=== PATIENT | female | born 1925 | race Caucasian/White ===

== ENCOUNTER 2017-04-16 06:12 | Inpatient (IN) | payer MEDICARE ==
--- NOTE | 2017-04-03 14:25 | HP ---
HISTORY AND PHYSICAL: DATE OF ADMISSION/SURGERY: 04/16/17 DATE OF OFFICE VISIT: 04/03/17 SURGEON: Darshana Nava MD * (DICTATED BY RASHIDA GODINEZ) PROCEDURE: Left total knee arthroplasty. CHIEF COMPLAINT: Left knee pain. HISTORY OF PRESENT ILLNESS: Ms. Bates is an 89-year-old female who has end- stage osteoarthritis of the left knee. She has failed conservative management and elected to proceed with a left total knee arthroplasty, which is scheduled for 04/16/[address] Nava. PAST MEDICAL HISTORY: AFib, hypertension, breast cancer, hyperlipidemia, Zenker 's diverticulum. PAST SURGICAL HISTORY: Tonsillectomy, lumpectomies, bilateral mastectomies, lymph node removal, cataract removal, endoscopy and D and C. CURRENT MEDICATIONS: 1. Eliquis 5 mg daily. 2. Tylenol as needed. 3. Atorvastatin calcium 10 mg daily. 4. Multivitamin. 5. Metoprolol 25 mg twice a day. 6. Antacid daily. 7. Valsartan 320 mg daily. 8. Fibercon. ALLERGIES: To CODEINE causing vomiting. FAMILY HISTORY: Heart disease and cancer. SOCIAL HISTORY: She is an 89-year-old female. She lives with her . She does not smoke or use drugs. Uses alcohol rarely. REVIEW OF SYSTEMS: A complete 14-point review of systems was reviewed with the patient. It was positive for palpitations. She denies history of DVT, PE, hepatitis C, HIV, or MRSA. PHYSICAL EXAMINATION GENERAL: She is well developed, well nourished, in no acute distress. VITAL SIGNS: She stands 5 feet 2 inches tall, weighs 140 pounds. Her blood pressure is 140/80, her heart rate is 84. HEENT: Normocephalic, atraumatic. NECK: Supple. No palpable lymph nodes. PULMONARY: Lungs are clear to auscultation bilaterally. CARDIO: Regular rate and rhythm. Strong S1, S2. ABDOMEN: Soft, nontender, nondistended. MUSCULOSKELETAL: Left lower extremity, the skin is intact. There are no open wounds or abrasions. She has some tenderness over the medial and lateral joint lines. There is some mild joint effusion. No varus or valgus instability. 10 to 120 degrees of flexion. 2+ dorsalis pedis pulses. Her lower extremity muscle group strengths are intact at 5/5. ASSESSMENT AND PLAN: Ms. Bates is an 89-year-old female with end-stage osteoarthritis of the left knee. She has failed conservative management and elected to proceed with a left total knee arthroplasty which is scheduled for with Dr. Nava. Dr. Nava discussed the risks and benefits of the surgery at today's visit and all of her questions were answered. Percocet and Colace were sent to her pharmacy for postoperative pain control. She was instructed to stop Eliquis 7 days before the surgery and we will restart this at the time of discharge for DVT prophylaxis. She follow up with Dr. Nava 2 weeks after the surgery. RASHIDA GODINEZ [id number]/CPS #: [id number] MTDD
[~2017-04-16 06:12] MED LIST: Acetaminophen TAB* 325 MG PO ONE; Buffered Lidocaine 0.9% SYRIN* 5 ML/SYR SYRINGE INTRADERM ONE; Dexamethasone IV* 4 MG/ML 1 ML (4 MG) IV SLOW PU ONE; Famotidine IV* 10 MG/ML 2 ML (20 mg) IV ONE
--- OUTSIDE RECORDS SUMMARY | 2017-04-16 06:19 | XMS REPORT ---
:1925 External Reference #:[id number] Author Organization [employer] Address [address] [address] Phone [phone] Care Team Providers Name Role Phone Juan Goff MD Primary Care Physician Unavailable Payers Type Date Identification Numbers Payment Provider Subscriber Health Maintenance Effective: Policy Number: Medicare Blue September [facility] [place] (O) 04/29/2013 [id number] o Group Number: [id number] [address] [address] PayID: [id number] GABRIELA Wilkinson [address] Commercial Policy Number: [id number] [facility] PayID: [id number] [place] [address] Problems Date Description Provider Status Onset: 01/17/2015 Localized, primary osteoarthritis Darshana Nava M.D. Active Onset: 09/14/2016 Localized, primary osteoarthritis of the Darshana Nava M.D. Active pelvic region and thigh Onset: 09/14/2016 Trochanteric bursitis Darshana Nava M.D. Active Family History Date Family Member(s) Problem(s) Comments General Heart Disease General Cancer General Rheumatoid Arthritis Social History Type Date Description Comments Lives With Occupation Retired Edmundo issues with memory and she primarily takes care of him and does the driving. They have been a [place] for 20+ years. They had been in [place] before that but they moved to this region because they were familiar because he went to college at [employer]. They have 3 children and 7 granddaughters. ETOH Use Denies alcohol use Smoking Patient has never smoked Recreational Drug Use Denies Drug Use Daily Caffeine Consumes on average 2 cups of hot tea per day Exercise Type/Frequency Exercises sporadically Allergies, Adverse Reactions, Alerts Date Description Reaction Status Severity Comments 06/07/2014 Codeine active 09/14/2016 Tylenol With Codeine active 06/07/2014 Tylenol inactive ok alone, had trouble tylenol with codeine only Medications Medication Date Status Form Strength Qnty SIG Indications Ordering Provider Oxycodone-Aceta 04/03/ Active Tablets 5-325mg 90tabs 1-2 tabs by Darshana minophen 2017 mouth every Elijah, 4-6 hours M.D. as needed for pain Stool Softener 04/03/ Active Capsules 100mg 90caps 1 by mouth Darshana 2017 2-3 times Elijah, daily while M.D. on narcotic pain medication Eliquis 01/29/ Active Tablets 5mg 180tab 1 by mouth I48.0 Emir S. 2017 s twice a day Slick, DO FACC Atorvastatin / Active 10mg 1 tab daily Unknown Calcium 0000 hs Multivitamin / Active 1 daily Unknown 0000 Metoprolol / Active Tablets ER 25mg 180tab 1 by mouth Emir S. Succinate ER 0000 24HR s twice daily Kruger, DO FACC Calcium / Active Chewtabs 500mg 2 tab Unknown Carbonate 0000 chewable Antacid twice a day Valsartan / Active Tablets 320mg 1 by mouth Unknown 0000 every day Fibercon / Active Unknown 0000 Acetaminophen 01/22/ Hx Tablets 500mg 120tab 2 tabs 2 Jessica Extra Strength 2017 - s times daily [place], 06/04/ as needed M.D. 2016 for pain Tamiflu 06/07/ Hx Capsules 75mg 10caps 1 cap by Mariah 2014 - mouth twice Juwan, 09/13/ a day x 5 N.P. 2017 days Clobetasol 10/12/ Hx Cream 0.05% 60gm apply thin Stephanie Propionate E 2014 - layer over [place], 2017 area before N.P. bed Valsartan / Hx 160mg Unknown - 2016 Aspirin Ec / Hx 81 mg daily Unknown Lo-Dose - 2016 Meloxicam / Hx 7.5mg Unknown - 2016 Medications Administered in Office Medication Date Status Form Strength Qnty SIG Indications Ordering Provider Inj, 02/27/ Administered Injection Emir Francois Regadenoson, 0.1 2016 Slick DO MG FACC Aminophylline 02/27/ Administered Injection Emir SJake 2016 DO Slick FACC Technetium TC 02/27/ Administered Injection Emir Francois 99M Tetrofosmin, 2016 Slick, Per Unit Dose Up FACC To 40 Millicuries Depomedrol 40MG 09/14/ Administered Injection Darshana 2016 Elijah, M.D. Synvisc Or 02/16/ Administered Injection Darshana Synvisc-One 2014 Elijah, Injection 1 MG M.D. Synvisc Or 02/09/ Administered Injection Darshana Synvisc-One 2014 Elijah, Injection 1 MG M.D. Synvisc Or 02/02/ Administered Injection Darshana Synvisc-One 2014 Elijah, Injection 1 MG M.D. Immunizations CPT Code Status Date Vaccine Lot # [id number] Given 02/09/2010 Influenza Virus 3Yrs & Over [id number] Given 05/03/2009 Influenza Virus Vaccine, Pandemic Formulation 69491 Given 05/03/2009 Administration Swine Flu Shot Vital Signs Date Vital Result Comment 04/03/2017 Height 61 inches 5'1" Weight 142.00 lb Heart Rate 84 /min BP Systolic 140 mmHg BP Diastolic 80 mmHg Respiratory Rate 14 /min Body Temperature 98.3 F Pain Level 2 BMI (Body Mass Index) 26.8 kg/m2 02/21/2017 Height 61 inches 5'1" Weight 141.00 lb with shoes Heart Rate 88 /min BP Systolic Sitting 112 mmHg Rue rge cuff BP Diastolic Sitting 74 mmHg Rue rge cuff BP Systolic Standing 114 mmHg Rue reg cuff BP Diastolic Standing 74 mmHg Rue reg cuff Respiratory Rate 16 /min BMI (Body Mass Index) 26.6 kg/m2 Ejection Fraction 55-60% echo 02/19/17 02/13/2017 Height 61 inches 5'1" Weight 140.00 lb Heart Rate 87 /min BP Systolic 142 mmHg BP Diastolic 82 mmHg BMI (Body Mass Index) 26.4 kg/m2 01/29/2017 Height 61 inches 5'1" Weight 141.00 lb no shoes Heart Rate 76 /min BP Systolic Sitting 136 mmHg Rue reg cuff BP Diastolic Sitting 82 mmHg Rue reg cuff BP Systolic Standing 134 mmHg Rue reg cuff BP Diastolic Standing 76 mmHg Rue reg cuff Respiratory Rate 16 /min BMI (Body Mass Index) 26.6 kg/m2 01/16/2017 Height 61 inches 5'1" Weight 145.00 lb Heart Rate 84 /min BP Systolic 147 mmHg BP Diastolic 73 mmHg Body Temperature 96.9 F BMI (Body Mass Index) 27.4 kg/m2 10/12/2016 Height 61 inches 5'1" Weight 145.00 lb Heart Rate 69 /min BP Systolic 159 mmHg BP Diastolic 68 mmHg Body Temperature 97.0 F BMI (Body Mass Index) 27.4 kg/m2 09/14/2016 Height 61 inches 5'1" Weight 145.00 lb Heart Rate 85 /min BP Systolic 143 mmHg BP Diastolic 82 mmHg Body Temperature 98.2 F BMI (Body Mass Index) 27.4 kg/m2 02/16/2015 Height 62 inches 5'2" Weight 140.00 lb Pain Level 2 BMI (Body Mass Index) 25.6 kg/m2 02/09/2015 Height 62 inches 5'2" Weight 140.00 lb Pain Level 3 BMI (Body Mass Index) 25.6 kg/m2 02/02/2015 Height 62 inches 5'2" Weight 140.00 lb Pain Level 3 BMI (Body Mass Index) 25.6 kg/m2 01/17/2015 Height 62 inches 5'2" Weight 140.00 lb Heart Rate 67 /min BP Systolic 140 mmHg BP Diastolic 69 mmHg BMI (Body Mass Index) 25.6 kg/m2 10/12/2013 Height 60.5 inches 5'0.50" Weight 149.00 lb Heart Rate 75 /min BP Systolic 144 mmHg BP Diastolic 70 mmHg Respiratory Rate 16 /min Body Temperature 97.9 F BMI (Body Mass Index) 28.6 kg/m2 Results Test Date Test Result H/L Range Note Urinalysis Profile 10/12/2013 Urine Color Yellow Urine Appearance Clear Urine Specific [place] 1.013 1.010-1.030 Urine pH 6.0 5-9 Urine Urobilinogen Negative Negative Urine Ketones Negative Negative Urine Protein Negative Negative Urine Leukocytes 1+ Negative Urine Blood Negative Negative * * Negative 1 Urine Nitrite Negative Negative Urine Bilirubin Negative Negative Urine Glucose Negative Negative Urine White Blood Cell Trace Absent Urine Red Blood Cell Trace Absent Urine Bacteria Absent Absent Laboratory test finding 10/12/2013 Genital Culture (SEE NOTE) 2 Cytology RUN DATE: <SEE NOTE> 3 Urine Culture And Sensitivities 10/12/2013 Urine Culture (SEE NOTE) 4 Laboratory test finding 10/12/2013 Affirm Vaginal Dna Probe (SEE NOTE) 5 1 *Ascorbic acid is present which may interfere with detection of blood. 2 RUN DATE: 10/14/13 [facility] LAB LIVE PAGE 1 RUN TIME: [address] [place] [address] Specimen Inquiry Name: SHAYNEMEGAN : [address]: Stephanie Stubbs Acct: [id number] Unit: [id number] AGE: 88 Location: [facility] Re10/12/13 SEX: F Status: REG REF SPEC: [id number] FELICITAS: 10/12/13-[address]: Stephanie Rogers NP REQ: [id number] RECD: 10/12/13 STATUS: COMP _ SOURCE: VAGINAL SPDESC: ORDERED: Genital Culture, Affirm Procedure Result Verified Site Genital Culture Final 10/14/13- 0852 ML Organism 1 NORMAL PAPI Quantity 1+ Affirm Vaginal DNA Probe Final 10/13/13- 1304 ML Organism 1 Negative Trichomonas Organism 2 Negative Gardnerella Organism 3 Negative Sandra The presence of G. vaginalis, although suggestive, is not diagnostic for bacterial vaginosis. Results should be interpreted in conjunction with other clinical and laboratory data available. Women with vaginal discharge should be evaluated for risk factors of cervicitis and pelvic inflammatory disease, toxic shock syndrome (S.aureus), and if present, evaluated for organisms not included in this assay such as N. gonorrhoeae, C. trachomatis, Mobiluncus, Mycoplasma and/or Prevotella. Mixed infections may occur. The performance of this test on patient specimens collected during or immediately after antimicrobial therapy is unknown. The presence or absence of Sandra species, G. vaginalis or T. vaginalis cannot be used as a test for therapeutic success or failure. END OF REPORT * ML=Testing performed at Main Lab DEPARTMENT OF PATHOLOGY, [facility] [place], [place] [address] Louis Barreto M.D. Director [facility] # [id number] 3 RUN DATE: 10/13/13 [facility] LAB LIVE PAGE 1 RUN TIME: [address] [place] [address] Specimen Inquiry Name: MEGAN BELLA : [address]: Stephanie Stubbs Acct: [id number] Unit: [id number] AGE: 88 Location: [facility] Re10/12/13 SEX: F Status: REG REF SPEC: [id number] FELICITAS: 10/12/13-[address] [facility] [address]: Stephanie Rogers TOWNSHIP SUPERVISOR REQ: [id number] RECD: 10/12/13 STATUS: TAMIA STRONG DR: Juan Goff MD _ ORDERED: IMAGE ANALYSIS FINAL DIAGNOSIS Negative for Intraepithelial lesion or Malignancy A. Ectocervical/Endocervical Specimen Adequacy: Satisfactory of evaluation Transformation zone component cannot be definitely identified due to presence of atrophy or other hormonal changes Patient Information: HPV: Thin Layer Pap Test w/reflex to high risk HPV DNA testing when ASCUS Actual Specimen Date: 10/12/13 Cautery: N IUD: N Lesion, grossly demonstrate: N Radiation Y/N? N ?: N Post Menopausal?: Y Hysterectomy?: N Previous Abnormal Pap Smears?:N Signed (signature on file) KINGSLEY Gibson (ASCP) 10/13 8372 This Pap test was evaluated with the assistance of the [employer] Test Imaging System. Due to cytologic findings at the psychology instructor microscope, comprehensive manual rescreening by a Band Sawyer may be required. The Pap Smear is a screening test designed to aid in the detection of premalignant and malignant conditions of the uterine cervix. It is not a diagnostic procedure and should not be used as the sole means of detecting cervical cancer. Both false- positive and false- negative reports do occur. Depending on your risk status, a Pap smear shoudl be obtained and evaluated every 1-3 years. END OF REPORT * ML=Testing performed at Main Lab DEPARTMENT OF PATHOLOGY, [facility] [place], [place] [address] Louis Barreto M.D. Director [facility] # [id number] 4 RUN DATE: 10/14/13 [facility] LAB LIVE PAGE 1 RUN TIME: 1122 [facility] [place], [place] [address] Specimen Inquiry Name: MEGAN BELLA : [address]: Stephanie Stubbs Acct: [id number] Unit: [id number] AGE: 88 Location: [facility] Re10/12/13 SEX: F Status: REG REF SPEC: [id number] FELICITAS: 10/12/13-[address] [facility] [address]: Stephanie Rogers NP REQ: [id number] RECD: 10/12/13 STATUS: HALINA STRONG DR: Rebekah _ SOURCE: URINE SPDESC: ORDERED: Urine Culture Procedure Result Verified Site Urine Culture Final 10/14/13- 1122 ML No Growth Day 2 (<1,000 CFU/mL) END OF REPORT * ML=Testing performed at Main Lab DEPARTMENT OF PATHOLOGY, [address] [place] [address] Louis Barreto M.D. Director [facility] # [id number] 5 RUN DATE: 10/13/13 [facility] LAB LIVE PAGE 1 RUN TIME: [address] [place] [address] Specimen Inquiry Name: MEGAN BELLA : [address]: Stephanie Nowak N Acct: [id number] Unit: [id number] AGE: 88 Location: [facility] Re10/12/13 SEX: F Status: REG REF SPEC: [id number] FELICITAS: 10/12/13-[address]: Stephanie Rogers TOWNSHIP SUPERVISOR REQ: [id number] RECD: 10/12/13 STATUS: RES _ SOURCE: VAGINAL SPDESC: ORDERED: Genital Culture, Affirm Procedure Result Verified Site Genital Culture Preliminary 10/13/13- 1041 ML No Growth Day 1 Affirm Vaginal DNA Probe Final 10/13/13- 1304 ML Organism 1 Negative Trichomonas Organism 2 Negative Gardnerella Organism 3 Negative Sandra The presence of G. vaginalis, although suggestive, is not diagnostic for bacterial vaginosis. Results should be interpreted in conjunction with other clinical and laboratory data available. Women with vaginal discharge should be evaluated for risk factors of cervicitis and pelvic inflammatory disease, toxic shock syndrome (S.aureus), and if present, evaluated for organisms not included in this assay such as N. gonorrhoeae, C. trachomatis, Mobiluncus, Mycoplasma and/or Prevotella. Mixed infections may occur. The performance of this test on patient specimens collected during or immediately after antimicrobial therapy is unknown. The presence or absence of Sandra species, G. vaginalis or T. vaginalis cannot be used as a test for therapeutic success or failure. END OF REPORT * ML=Testing performed at Main Lab DEPARTMENT OF PATHOLOGY, [address] [place] [address] Louis Barreto M.D. Director [facility] # [id number] Procedures Date CPT Code Description Status 02/27/2017 80727 Stress Test Completed 02/27/2017 94867 Myocardial Perfusion Imaging Tomographic (Spect) Completed Multiple Studies 02/20/2017 27919 Holter Monitor Review (24 hr)dr tenorio & gisela Completed only 02/19/2017 47410 ECHO Transthoracic, Real-Time 2D With Doppler And Color Completed Flow 02/19/2017 36030 ECHO Transthoracic, Real-Time 2D With Doppler And Color Completed Flow 02/18/2017 23463 ECG Monitor/Recording W/Visual Superimposition Scanning Completed 02/18/2017 27780 ECG Monitor/Recording W/Visual Superimposition Scanning Completed 01/29/2017 80282 EKG Tracing & Interpretation Completed 09/14/2016 Injection Single Tendon Origin/Insertion Completed 02/16/2015 Inject/Drain Joint/Bursa Major Completed 02/09/2015 Inject/Drain Joint/Bursa Major Completed 02/02/2015 Inject/Drain Joint/Bursa Major Completed Encounters Type Date Location Provider CPT E/M Dx Office Visit 02/21/2017 [facility] 10197 Z01.810 10:20a [facility] FACC I48.91 I10 Office Visit 02/13/2017 10:30a [facility] M.[facility]. 17948 M25.562 C.M.A. M25.462 M17.12 Office Visit 01/29/2017 10:40a [facility] [address]771 I48.0 [facility] FACC I10 K22.5 M17.0 Office Visit 01/16/2017 9:45a [facility] M.D. 88509 M16.11 C.M.A. M25.551 M70.61 Office Visit 10/12/2016 11:15a [facility] M.D. 56811 M17.0 C.M.A. M25.562 M25.561 M25.462 M25.461 M16.11 M25.551 M70.61 Office Visit 09/14/2016 9:30a [facility] M.D. 96737 M17.0 C.M.A. M25.562 M25.561 M25.462 M25.461 M16.11 M25.551 M70.61 Office Visit 01/17/2015 1:30p [facility] M.D. 24317 M17.12 C.M.A. M25.562 M25.462 Office Visit 10/12/2013 2:40p [facility] Stephanie Nowak, [address] 616.11 Home N.P. Plan of Care Future Appointment(s):04/16/2017 7:30 am - RASHIDA Costello at [facility].04/16/2017 7:30 am - CHARLES Burgess at [facility].04/16/2017 7:30 am - CHARLES Galaviz at [facility].04/16/2017 7:30 am - Darshana Nava M.D. at [facility].05/01/2017 10:00 am - Darshana Nava M.D. at [facility].04/03/2017 - Darshana Nava M.D.M25.562 Pain in left kneeFollow up:Follow up: 2 weeks after wirvajjN37.462 Effusion, left kneeM17.12 Unilateral primary osteoarthritis, left knee
[2017-04-16] MEDS ORDERED: Dexamethasone IV* 4 MG/ML 1 ML (4 MG) ONE (06:26)
[2017-04-16] MEDS ORDERED: Acetaminophen TAB* 325 MG ONE (06:26)
[2017-04-16] MEDS ORDERED: ceFAZolin 2 GM PREMIX (*) 2 GM/50 ML BAG IVPB ONE (06:26)
[2017-04-16] MEDS ORDERED: Famotidine IV* 10 MG/ML 2 ML (20 mg) ONE (06:26)
[2017-04-16] MEDS ORDERED: Buffered Lidocaine 0.9% SYRIN* 5 ML/SYR SYRINGE ONE (06:26)
[2017-04-16] MEDS ORDERED: Lidocaine 2% PF * 5 ML VIAL ONE (07:15)
[2017-04-16] MEDS ORDERED: Midazolam* 1 MG/ML 2 ML VIAL (2 MG) ONE ×2 (07:15→08:02)
[2017-04-16] MEDS ORDERED: fentaNYL* 50 MCG/ML 2 ML VIAL (100 MCG VIAL) ONE (07:15)
[2017-04-16] MEDS ORDERED: Propofol* 500 MG/50 ML BTL ONE (07:15)
[2017-04-16] MEDS ORDERED: Bupivacaine 0.5% SDV PF* 30 ML VIAL ONE (07:16)
[2017-04-16] MEDS ORDERED: diPHENhydraMINE IV* 50 MG/ML 1 ml VIAL (BENADRYL) IV PRN (08:35)
[2017-04-16] MEDS ORDERED: Ondansetron INJ* 2 MG/ML VIAL IV PRN ×2 (08:35→09:18)
[2017-04-16] MEDS ORDERED: Ibuprofen TAB* 600 MG PO PRN (08:35)
[2017-04-16] MEDS ORDERED: Acetaminophen TAB* 325 MG PO PRN (08:35)
[2017-04-16] MEDS ORDERED: PROCHLORPERAZINE INJ 5 MG/ML 2 ML VIAL IV PRN (08:35)
[2017-04-16] MEDS ORDERED: fentaNYL* 50 MCG/ML 2 ML VIAL (100 MCG VIAL) IV PRN (08:35)
[2017-04-16] MEDS ORDERED: DiMENhydriNATE IV* 50 MG/ML VIAL IV PUSH PRN (08:35)
[2017-04-16] MEDS ORDERED: HYDROmorphone INJ* 1 MG/ML CARPUJECT SYRINGE IV PRN (08:35)
[2017-04-16] MEDS ORDERED: Phenylephrine IV* 40 MCG/ML 10 ML SYRINGE ONE (08:46)
[2017-04-16] MEDS ORDERED: diPHENhydraMINE PO* 25 MG PO PRN (09:18)
[2017-04-16] MEDS ORDERED: oxyCODONE/Acetamin 5/325 MG* TAB PO PRN (09:18)
[2017-04-16] MEDS ORDERED: Bisacodyl SUPP* 10 MG SUPP PR PRN (09:18)
[2017-04-16] MEDS ORDERED: Polyethylene Glycol 3350* 17 GM PACKET PO PRN (09:18)
[2017-04-16] MEDS ORDERED: Morphine INJ* 2 MG/ML 1 ML SYRINGE (TWO MG - NEW SYRINGE VERSION) IV PRN (09:18)
--- NOTE | 2017-04-16 10:41 | RAD ---
HISTORY: Status post left knee arthroplasty COMPARISONS: February 13, 2017 VIEWS: 2, Frontal and lateral views of the left knee FINDINGS: BONE DENSITY: Normal. BONES: The patient is status post left knee arthroplasty. There is no hardware failure or osteolysis. JOINTS: The patient is status post left knee arthroplasty. ALIGNMENT: There is no dislocation. SOFT TISSUES: There is postsurgical change to the soft tissue. OTHER FINDINGS: None. IMPRESSION: STATUS POST LEFT KNEE ARTHROPLASTY.
[2017-04-16] MEDS ORDERED: ceFAZolin 1 GM VIAL(*) 1 GM in NS 0.9% 50 ML* 50 ML IVPB SCH (15:30)
[2017-04-16] MEDS: ceFAZolin 1 GM in Dextrose (*) 1 GM/50 ML BAG IVPB SCH ×2 (15:56→23:34)
[2017-04-16] MEDS: Calcium Polycarbophil TAB* 625 MG PO SCH (18:08)
[2017-04-16] MEDS: oxyCODONE/Acetamin 5/325 MG* TAB PO PRN ×2 (18:52→23:33)
--- NOTE | 2017-04-16 20:07 | CONS ---
HOSPITAL MEDICINE CONSULTATION REPORT: DATE OF CONSULT: 04/16/17 ATTENDING PHYSICIAN: Dr. Nava. CONSULTING PHYSICIAN: Ezio Torres MD (dictation provided by Juan Carlos Metzger NP) REASON FOR CONSULT: Co-management of chronic medical conditions. HISTORY OF PRESENT ILLNESS: Ms. Bates is an 89-year-old female who has end- stage osteoarthritis of the left knee. She has failed conservative management and elected to proceed with left total knee arthroplasty, which was completed today by Dr. Nava. She carries a past medical history of AFib, hypertension, breast cancer, hyperlipidemia, and Zenker's diverticulum. In the postoperative period, she has no complaints. She denies fever, chills, shortness of breath. She denies chest pain or edema. The hospitalist were asked to see her for management of the patient during the postoperative period due to her history of AFib and hypertension, and hyperlipidemia. PAST MEDICAL HISTORY: 1. AFib. 2. Hypertension. 3. History of breast cancer. 4. Hyperlipidemia. 5. Zenker's diverticulum. PAST SURGICAL HISTORY: 1. Tonsillectomy. 2. Lumpectomies. 3. Bilateral mastectomy. 4. Left lymph node removal, axillary. 5. Cataract removal. 6. Endoscopy. 7. D and C. CURRENT MEDICATIONS: 1. Eliquis 5 mg p.o. daily. 2. Tylenol as needed. 3. Atorvastatin 10 mg p.o. daily. 4. Multivitamin. 5. Metoprolol 25 mg twice a day. 6. Valsartan 160 mg daily. 7. Fibercon. ALLERGIES: CODEINE and MEPERIDINE. FAMILY HISTORY: She does report a family history of heart disease and cancer. SOCIAL HISTORY: She is an 89-year-old female who lives with her . She denies smoking or drug use. She does consume alcohol rarely. Decision maker is her in the event she is unable to make her own decisions. REVIEW OF SYSTEMS: General: No fever, chills, or unintended weight loss. Cardiac: No chest pain or edema. Respiratory: No shortness of breath or chest congestion. GI: No nausea, vomiting, or diarrhea. Denies abdominal pain. : No gross hematuria. No dysuria. Neuro: No focal weakness or sensory loss. Eyes: No visual complaints. ENT: No dysphagia. Musculoskeletal : Denies myalgias. Skin: No rashes or lesions. Psych: Denies depression or anxiety. PHYSICAL EXAMINATION: Vital Signs: Blood pressure 126/64, heart rate is 86, temperature is 97.5, respirations 20, O2 sat is 98% on room air. General: Ms. Bates is sitting in bed. She is in no acute distress. She denies any complaints of pain at this time. Neuro: She is alert and oriented x3. She moves all extremities. There is no facial asymmetry or focal weakness noted. Extraocular eye movements are intact. Heart: S1, S2. There are no murmurs, rubs, or gallops and she has an irregular rate. Lungs: Clear to auscultation bilaterally with no accessory muscle use. Abdomen: Soft and nontender. Bowel sounds are positive x4. Extremities: There is no cyanosis or edema. Pedal pulses are +2 bilaterally. Skin: Intact. She does have a dressing intact to her left knee. DIAGNOSTIC STUDIES/LABORATORY DATA: Preoperatively, this lab work is from 04/03 , WBCs are 7.6, RBCs are 4.04, hemoglobin was 13.3, hematocrit was 40, platelet count was 291. Coags from 04/03/17, INR was 1.08. Chemistry from 10/13, sodium 139, potassium 4.3, chloride 104, carbon dioxide was 30, BUN was 21, creatinine 0.71, glucose was 89, calcium was 9.1, AST 25, ALT 23. Urine from 04/03/17, pH was 5, specific gravity was 1.020. Urine protein was negative. Ketones were negative. Blood was negative. Nitrites were negative. Bilirubin was negative. Urobilinogen was negative. Urine leukocyte esterase was 2+. Urine wbc's were 2+, rbc's were 1+. Epithelial cells were present and calcium oxalate crystals were also present. Urine bacteria was absent. Hyaline casts were present. Urine glucose was negative and urine ascorbic acid was also negative. Knee x-ray from 10/15/16, radiologist's impression is status post left total knee arthroplasty. EKG from 01/30/17 showed AFib at a rate of 96. IMPRESSION AND PLAN: Ms. Bates is an 89-year-old female who presented to the hospital today for scheduled elective left total knee replacement. In the immediate postoperative period, she has no complaints and is doing well. Our recommendations are as follows: 1. Status post left total knee: Management will be per Orthopedics. The patient will be given pain management. Her H and H will be trended. She will have her urinary catheter until tomorrow morning. The patient will have physical therapy and occupational therapy with weightbearing as tolerated. 2. Atrial fibrillation: We will continue on her metoprolol and continue an anticoagulant, she will be placed on Lovenox as per Orthopedics. 3. Hypertension: We will hold her valsartan this evening. We will restart the valsartan tomorrow morning providing her blood pressure is stable. 4. FEN: I would recommend a heart healthy diet. 5. Code status: She is a full code. 6. DVT prophylaxis: The patient will be on Lovenox per Orthopedics. 7. Disposition: As per Orthopedic Surgery. TIME SPENT: Time spent on this consultation was approximately 60 minutes, 30 minutes of that time was spent with the patient discussing medications and past medical history leading to the events of her arrival today. The case was reviewed with my attending, Dr. Ezio Torres, who agrees with my plan of care. JUAN CARLOS METZGER, BLANKET FOLDER [id number]/[facility] #: [id number] JAVIER
[2017-04-16] MEDS: Metoprolol Succinate XL TAB* 25 MG PO SCH (21:11)
[2017-04-16] MEDS: oxyCODONE TAB* 5 MG TAB PO PRN (21:12)
[2017-04-16] MEDS: Docusate CAP* 100 MG PO SCH (21:12)
[2017-04-16] MEDS: Atorvastatin* 10 MG TAB PO SCH (21:12)
[2017-04-16] MEDS: Magnesium Hydroxide LIQ* 30 ML UDC PO SCH (21:15)
[2017-04-17 05:53] LABS: Hemoglobin 10.5 g/dl (12.0-16.0)
[2017-04-17 05:56] LABS: Hematocrit 31 % (35-47); Mean Platelet Volume 7 um3 (7.4-10.4)
--- NOTE | 2017-04-17 06:04 | OP ---
OPERATIVE REPORT: DATE OF OPERATION: 04/16/17 DATE OF : [birth year] SURGEON: Darshana Nava MD TUG MASTER: RASHIDA Galaviz Ms. Palacios did help throughout the procedure with preparation of the leg, wound retraction, manipula tion of the knee, and wound closure. ANESTHESIOLOGIST: Nikia León MD ANESTHESIA: Spinal. PRE-OP DIAGNOSIS: Severe end-stage degenerative osteoarthritis of the left knee joint. POST-OP DIAGNOSIS: Severe end-stage degenerative osteoarthritis of the left knee joint. OPERATIVE PROCEDURE: Left total knee arthroplasty. INDICATIONS: Ms. Bates is an 89-year-old female with years of increasingly severe left knee pain. H er radiographs showed [id number] arthritis. She failed conservative treatment with anti-inflammato nellie, pain medication, intraarticular injections, and physical therapy. She elected to undergo left total knee arthroplasty due to continued pain and decreased quality of life. Informed consent was obtained from the patient. She understood the risks of procedure included but w ere not limited to bleeding, infection, damage to nearby structures, continued pain, need for further surgery, intraoperative fracture, nerve palsy, hardware failure or loosening, knee stiffness, loss o f motion, stroke, heart attack, blood clot, and . She wished to proceed. TOURNIQUET TIME: 41 minutes. COMPLICATIONS: None. ESTIMATED BLOOD LOSS: 300 cc. SPECIMEN: Bone and cartilage from the left knee joint sent to Pathology. HARDWARE USED: This is cemented total knee arthroplasty hardware from [employer]. Two package s of Simplex bone cement. For the femur, a size 5 left posterior stabilized narrow Legion femoral co mponent. For the tibia, size 4 left tibial baseplate. For the insert, a 13-mm posterior stabilized articular insert, size 3-4, and for the patella, a 32-mm 3-peg all poly patella. INTRAOPERATIVE FINDINGS: Intraoperatively, the patient was noted to have severe end-stage arthritis to the knee joint with full-thickness loss of cartilage in a tricompartmental fashion. She did have significant osteopenia noted throughout the case. DESCRIPTION OF PROCEDURE: Ms. Bates was identified in the preanesthesia unit and her left lower extr emity was marked as the correct operative side. Informed consent was signed and placed in the chart. The patient was taken to the operating room and placed under spinal anesthesia. A tourniquet was p laced on the left thigh. A Diane catheter was placed. Left lower extremity was prepped and draped i n the usual sterile fashion. Preop time-out was made to correctly identify the patient's side and si te. Appropriate perioperative antibiotics were given within 1 hour of incision. Tourniquet was inflated and total tourniquet time for this procedure was 41 minutes. A 12-cm midline incision was made with a 10 blade and carried down to the extensor mechanism. New 10 blade was used to make a standard medial parapatellar arthrotomy. Patella was subluxed laterally. Electrocautery was used to subperiosteally elevate the soft tissue off the superomedial tibia to the mid sagittal pl ane. The knee was flexed up. The anterior horn of the lateral meniscus and ACL were sharply released. A drill was used to enter the distal femur. Intramedullary distal femoral cutting guide was pinned on the distal femur. An oscillating saw was used to make the distal femoral cut. Next, the external ro tation guide was pinned on the distal femur and the distal femur was sized to a size 5. A size 5 mul ti-cutting jig was pinned on the distal femur. The oscillating saw was used to make the appropriate 4 chamfer cuts. The PCL was completely released. The tibia was subluxed anteriorly. Extramedullary tibial cutting gu rashida was pinned on the proximal tibia. The oscillating saw was used to make the appropriate proximal tibial cut. The bone was carefully removed. The knee was brought out into full extension. The spac er block had good fit in full extension. Medial and lateral ligaments were well balanced. Flexion an d extension gaps were well balanced. The knee was flexed up. Lamina diesel technician mechanic was placed both medial ly and laterally. Any remaining meniscus was carefully removed using electrocautery. Curved osteoto me was used to remove the posterior osteophytes. Tibial tray and drop estefania were placed to once again confirm satisfactory proximal tibial cut. This was confirmed. A narrow size 5 left femoral component was impacted on to the distal femur. This femoral trial had e xcellent fit. The box for the posterior stabilized implant was prepared using a reamer and box cut o steotome. A trial size 4 tibial tray with an 11-mm insert was placed. The knee was taken through ra nge of motion and had full extension to 130 degrees of flexion. There was satisfactory patellofemora l tracking. The patella was everted. 9 mm of patellar bone and cartilage was carefully removed with an oscillati ng saw. The patella was sized to a size 32. 3-peg holes were drilled through the size 32 guide. A trial 32 patella was placed and the knee was taken through range of motion. There was satisfactory p atellofemoral tracking. All trials were carefully removed. The tibia was subluxed anteriorly and sized to a size 4. Proxima l tibia was prepared using a size 4 keel punch. All bony cut surfaces were copiously irrigated with sterile saline and dried. The final implants were cemented into place starting with the tibia, follo wed by the femur and lastly the patella. A 13-mm insert trial was placed and the knee was taken to f ull extension. Tourniquet was turned down at 41 minutes. The knee was copiously irrigated with ster ile saline. Electrocautery was used to obtain meticulous hemostasis. Once the cement had fully cure d, the insert trial was removed and the excess cement was carefully removed from around the capsule a nd hardware. A size 13-mm posterior stabilized articular insert size 3-4 was chosen as the final imp lant. This was locked into position on the tibial tray. Stability of the insert was checked and rec hecked and noted to be stable. The extensor mechanism was closed over a medium Hemovac drain using interrupted #1 Vicryls. The rest of the incision was closed in a layered fashion using 0 and 2-0 Vicryls. The skin was closed using running 3-0 nylon suture. Sterile Xeroform, 4x4s, and Webril were used to cover the incision. Claudio w rap and cold pack were placed over this. The patient's anesthesia was reversed without difficulty. S he was taken to the PACU in stable condition. Intended weightbearing will be weightbearing as tolera franco. Intended DVT prophylaxis will be Coumadin with a Lovenox bridge. [id number]/[facility] #: [id number]
[2017-04-17 06:05] LABS: Comments Flag Yes
[2017-04-17 06:09] LABS: BUN/Creatinine Ratio 28.2 (8-20); Calcium 8.7 mg/dL (8.6-10.3); EGFR African American 99.7 (>60); EGFR Non-African American 77.5 (>60); Potassium 4.4 mmol/L (3.5-5.0)
[2017-04-17] MEDS: oxyCODONE/Acetamin 5/325 MG* TAB PO PRN ×3 (07:45→20:14)
[2017-04-17] MEDS: ceFAZolin 1 GM in Dextrose (*) 1 GM/50 ML BAG IVPB SCH (07:46)
[2017-04-17] MEDS: Calcium Carbonate CHEW TAB* 500 MG (TUMS) PO SCH (08:00)
[2017-04-17] MEDS: Valsartan TAB* 160 MG PO SCH (08:00)
[2017-04-17] MEDS: Vitamin THERAPEUTIC TAB PO SCH (08:01)
[2017-04-17] MEDS: Metoprolol Succinate XL TAB* 25 MG PO SCH ×2 (08:01→20:14)
[2017-04-17] MEDS: Docusate CAP* 100 MG PO SCH ×2 (08:01→20:14)
[2017-04-17] MEDS: Magnesium Hydroxide LIQ* 30 ML UDC PO SCH ×2 (08:01→20:14)
[2017-04-17] MEDS: Enoxaparin(*) 30 MG/0.3 ML SYR SUBCUT SCH (09:40)
--- NOTE | 2017-04-17 10:16 | PN ---
Subjective Date of Service: 04/17/17 Interval History: Pt got OOB with the help of PT. doing well Objective Active Medications: Atorvastatin Calcium (Lipitor*) 10 mg PO 2100 [facility] Last Admin: 04/16/17 21:12 Dose: 10 mg Bisacodyl (Dulcolax Supp*) 10 mg [place] DAILY PRN PRN Reason: constipation Calcium Carbonate (Tums*) 1,000 mg PO QAM [facility] Last Admin: 04/17/17 08:00 Dose: 1,000 mg Calcium Polycarbophil (Fibercon Tab*) 625 mg PO QPM [facility] Last Admin: 04/16/17 18:08 Dose: 625 mg Diphenhydramine HCl (Benadryl Po*) 25 mg PO Q6H PRN PRN Reason: itching Docusate Sodium (Colace Cap*) 100 mg PO BID [facility] Last Admin: 04/17/17 08:01 Dose: 100 mg Enoxaparin Sodium (Lovenox(*)) 30 mg SUBCUT Q24H [facility] Last Admin: 04/17/17 09:40 Dose: 30 mg Magnesium Hydroxide (Milk Of Magnesia Liq*) 30 ml PO BID [facility] Last Admin: 04/17/17 08:01 Dose: 30 ml Metoprolol Succinate (Toprol Xl Tab*) 25 mg PO BID [facility] Last Admin: 04/17/17 08:01 Dose: 25 mg Morphine Sulfate (Morphine Inj (Syringe)*) 2 mg IV Q2H PRN PRN Reason: PAIN Last Admin: 04/16/17 18:12 Dose: 2 mg Multivitamins (Theragran Tab*) 1 tab PO DAILY [facility] Last Admin: 04/17/17 08:01 Dose: 1 tab Ondansetron HCl (Zofran Inj*) 4 mg IV Q6H PRN PRN Reason: nausea Oxycodone HCl (Roxycodone Tab*) 10 mg PO Q4H PRN PRN Reason: PAIN - MODERATE TO SEVERE Last Admin: 04/16/17 21:12 Dose: 10 mg Oxycodone/Acetaminophen (Percocet 5/325 Tab*) 1 tab PO Q4H PRN PRN Reason: PAIN Last Admin: 04/16/17 14:57 Dose: 1 tab Oxycodone/Acetaminophen (Percocet 5/325 Tab*) 2 tab PO Q4H PRN PRN Reason: PAIN Last Admin: 04/17/17 07:45 Dose: 2 tab Polyethylene Glycol/Electrolytes (Miralax*) 17 gm PO DAILY PRN PRN Reason: Constipation Valsartan (Diovan Tab*) 320 mg PO QAM [facility] Last Admin: 04/17/17 08:00 Dose: 320 mg Vital Signs - 8 hr 04/17/17 04/17/17 04/17/17 03:18 03:20 03:27 Temperature 97.7 F Pulse Rate 153 Respiratory 18 Rate Blood Pressure 92/64 110/60 (mmHg) O2 Sat by Pulse 95 Oximetry 04/17/17 04/17/17 04/17/17 04:19 06:09 06:10 Temperature Pulse Rate Respiratory 20 17 Rate Blood Pressure (mmHg) O2 Sat by Pulse 97 Oximetry 04/17/17 04/17/17 04/17/17 07:36 07:45 07:50 Temperature 98.5 F Pulse Rate 95 108 Respiratory 16 16 Rate Blood Pressure 139/66 (mmHg) O2 Sat by Pulse 99 Oximetry 04/17/17 04/17/17 08:00 09:38 Temperature Pulse Rate Respiratory 16 18 Rate Blood Pressure (mmHg) O2 Sat by Pulse 99 Oximetry Oxygen Devices in Use Now: None Appearance: 89 yo f in nAD, aAO3 Eyes: No Scleral Icterus, PERRLA Ears/Nose/Mouth/Throat: NL Teeth, Lips, Gums, Mucous Membranes Moist Neck: NL Appearance and Movements; NL JVP, Trachea Midline Respiratory: Symmetrical Chest Expansion and Respiratory Effort, Clear to Auscultation Cardiovascular: NL Sounds; No Murmurs; No JVD, - - irregular Abdominal: NL Sounds; No Tenderness; No Distention, No Hepatosplenomegaly Lymphatic: No Cervical Adenopathy Extremities: No Clubbing, Cyanosis, - - left knee-post op dressings not removed , trace left ankle edema Skin: No Nodules or Sclerosis Neurological: Alert and Oriented x 3, NL Muscle Strength and Tone Result Diagrams: 04/17/17 05:34 04/17/17 05:34 Assess/Plan/Problems-Billing Assessment: 89 yo F with h/o A. fib (recently dx, chronic), HTN, dyslipidemia s/ p elective left knee replacement - Patient Problems (1) Status post left knee replacement Comment: cont PT, to [facility] rehab once ready to be discharged by ortho-supect tomorrow (2) Atrial fibrillation Comment: chronic, eliquis on hold, to be restarted once OK with ortho cont lopressor for rate control (3) HTN (hypertension) Comment: controlled, cont Valsartan (4) Dyslipidemia Comment: cont lipitor (5) DVT prophylaxis Comment: on lovenox as per ortho (6) Postoperative anemia due to acute blood loss Comment: Hb down to 10 from baseline 13 will recheck in aM Status and Disposition: Thank you for consult. Recommend restarting Eliquis when appropriate post op. Will sign off and see pt prn
--- NOTE | 2017-04-17 10:54 | PN ---
Progress Note - Progress Note Date of Service: 04/17/17 SOAP: Subjective: [] Patient seen at bedside. She reports good pain control. Denies CP, SOB, fever , chills or nausea. Objective: [] Vital Signs Temp 98.5 F 04/17/17 07:36 Pulse 108 04/17/17 07:50 Resp 18 04/17/17 09:38 BP 139/66 04/17/17 07:36 Pulse Ox 99 04/17/17 08:00 Intake & Output 04/16/17 04/17/17 04/17/17 18:59 06:59 18:59 Intake Total 2944 1586 320 Output Total 950 525 Balance 1993 1061 320 Intake: IV Fluids 2404 911 LR 2354 911 NS 50ML, Cefazolin 2G 50 IVPB 65 ABX - CEFAZOLIN 65 Oral 540 610 320 Output: Diane 950 525 Other: Estimated Void Medium # Bowel Movements 0 # Voids 1 Laboratory Last Values Hgb 10.5 g/dl (12.0-16.0) L 04/17/17 05:34 Hct 31 % (35-47) L 04/17/17 05:34 Plt Count 213 10^3/ul (150-450) 04/17/17 05:34 MPV 7 um3 (7.4-10.4) L 04/17/17 05:34 Sodium 137 mmol/L (133-145) 04/17/17 05:34 Potassium 4.4 mmol/L (3.5-5.0) 04/17/17 05:34 Chloride 104 mmol/L (101-111) 04/17/17 05:34 Carbon Dioxide 31 mmol/L (22-32) 04/17/17 05:34 Anion Gap 2 mmol/L (2-11) 04/17/17 05:34 BUN 20 mg/dL (6-24) 04/17/17 05:34 Creatinine 0.71 mg/dL (0.51-0.95) 04/17/17 05:34 Est GFR ( Amer) 99.7 (>60) 04/17/17 05:34 Est GFR (Non-Af Amer) 77.5 (>60) 04/17/17 05:34 BUN/Creatinine Ratio 28.2 (8-20) H 04/17/17 05:34 Glucose 136 mg/dL (70-100) H 04/17/17 05:34 Calcium 8.7 mg/dL (8.6-10.3) 04/17/17 05:34 General: Well appearing, NAD. Calm and cooperative. LLE: Drain pulled with tip intact and without complication. BL LE: calves supple and nontender without erythema, edema or palpable cords. DF /PF intact. Sensation intact distally. DP/PT pulses 2+. Assessment: []POD 1 s/p left total knee arthroplasty 04/16 Dr Nava Plan: WBAT PT/OT DC to [facility] rehab once appropriate Lovenox. Eliquis on hold, to be restarted at discharge
[2017-04-17] MEDS: oxyCODONE TAB* 5 MG TAB PO PRN (16:28)
[2017-04-17] MEDS: Calcium Polycarbophil TAB* 625 MG PO SCH (18:34)
[2017-04-17] MEDS: Atorvastatin* 10 MG TAB PO SCH (20:14)
[2017-04-18] MEDS: oxyCODONE/Acetamin 5/325 MG* TAB PO PRN ×4 (03:38→21:35)
[2017-04-18 06:26] LABS: Hematocrit 33 % (35-47); Hemoglobin 10.8 g/dl (12.0-16.0)
[2017-04-18 06:32] LABS: Mean Platelet Volume 8 um3 (7.4-10.4)
[2017-04-18] MEDS: Docusate CAP* 100 MG PO SCH ×3 (08:29→21:36)
[2017-04-18] MEDS: Magnesium Hydroxide LIQ* 30 ML UDC PO SCH ×2 (08:30→21:36)
[2017-04-18] MEDS: Valsartan TAB* 160 MG PO SCH (08:34)
[2017-04-18] MEDS: Calcium Carbonate CHEW TAB* 500 MG (TUMS) PO SCH (08:34)
[2017-04-18] MEDS: Vitamin THERAPEUTIC TAB PO SCH (08:35)
[2017-04-18] MEDS: Metoprolol Succinate XL TAB* 25 MG PO SCH ×2 (08:35→21:37)
[2017-04-18] MEDS: Enoxaparin(*) 30 MG/0.3 ML SYR SUBCUT SCH (11:44)
--- NOTE | 2017-04-18 13:52 | PN ---
Progress Note - Progress Note Date of Service: 04/18/17 SOAP: Subjective: []Patient seen at bedside. She reports good pain control. Denies CP, SOB, fever , chills or nausea. Desires to stay until 04/19 as she feels she has not progressed well enough with PT yet. Objective: [] Vital Signs Temp 98.5 F 04/17/17 07:36 Pulse 108 04/17/17 07:50 Resp 18 04/17/17 09:38 BP 139/66 04/17/17 07:36 Pulse Ox 99 04/17/17 08:00 Intake & Output 04/16/17 04/17/17 04/17/17 18:59 06:59 18:59 Intake Total 2944 1586 320 Output Total 950 525 Balance 1993 1061 320 Intake: IV Fluids 2404 911 LR 2354 911 NS 50ML, Cefazolin 2G 50 IVPB 65 ABX - CEFAZOLIN 65 Oral 540 610 320 Output: Diane 950 525 Other: Estimated Void Medium # Bowel Movements 0 # Voids 1 Laboratory Last Values Hgb 10.5 g/dl (12.0-16.0) L 04/17/17 05:34 Hct 31 % (35-47) L 04/17/17 05:34 Plt Count 213 10^3/ul (150-450) 04/17/17 05:34 MPV 7 um3 (7.4-10.4) L 04/17/17 05:34 Sodium 137 mmol/L (133-145) 04/17/17 05:34 Potassium 4.4 mmol/L (3.5-5.0) 04/17/17 05:34 Chloride 104 mmol/L (101-111) 04/17/17 05:34 Carbon Dioxide 31 mmol/L (22-32) 04/17/17 05:34 Anion Gap 2 mmol/L (2-11) 04/17/17 05:34 BUN 20 mg/dL (6-24) 04/17/17 05:34 Creatinine 0.71 mg/dL (0.51-0.95) 04/17/17 05:34 Est GFR ( Amer) 99.7 (>60) 04/17/17 05:34 Est GFR (Non-Af Amer) 77.5 (>60) 04/17/17 05:34 BUN/Creatinine Ratio 28.2 (8-20) H 04/17/17 05:34 Glucose 136 mg/dL (70-100) H 04/17/17 05:34 Calcium 8.7 mg/dL (8.6-10.3) 04/17/17 05:34 General: Well appearing, NAD. Calm and cooperative. LLE: Dressing changed by Dr. Nava this morning without complication. BL LE: calves supple and nontender without erythema, edema or palpable cords. DF /PF intact. Sensation intact distally. DP/PT pulses 2+. Assessment: []POD 2 s/p left total knee arthroplasty 04/16 Dr Nava Plan: WBAT PT/OT DC to [facility] rehab 04/19 Lovenox. Eliquis on hold, to be restarted at discharge
[2017-04-18] MEDS: oxyCODONE TAB* 5 MG TAB PO PRN (15:41)
[2017-04-18] MEDS: Calcium Polycarbophil TAB* 625 MG PO SCH (17:32)
[2017-04-18] MEDS: Atorvastatin* 10 MG TAB PO SCH (21:36)
[2017-04-19 05:56] LABS: Hematocrit 31 % (35-47); Hemoglobin 10.5 g/dl (12.0-16.0); Mean Platelet Volume 8 um3 (7.4-10.4)
[2017-04-19] MEDS: Valsartan TAB* 160 MG PO SCH (08:39)
[2017-04-19] MEDS: Docusate CAP* 100 MG PO SCH ×2 (08:40→21:18)
[2017-04-19] MEDS: Calcium Carbonate CHEW TAB* 500 MG (TUMS) PO SCH (08:40)
[2017-04-19] MEDS: Vitamin THERAPEUTIC TAB PO SCH (08:40)
[2017-04-19] MEDS: Metoprolol Succinate XL TAB* 25 MG PO SCH (08:41)
[2017-04-19] MEDS: oxyCODONE/Acetamin 5/325 MG* TAB PO PRN ×3 (08:41→21:19)
[2017-04-19] MEDS: Enoxaparin(*) 30 MG/0.3 ML SYR SUBCUT SCH (08:43)
[2017-04-19] MEDS: Magnesium Hydroxide LIQ* 30 ML UDC PO SCH ×2 (08:49→21:18)
--- NOTE | 2017-04-19 10:05 | PN ---
Subjective Date of Service: 04/19/17 Interval History: Patient seen and examined at bedside. HR per vitals anywhere from 50s to 120s. This was on the vitals machine. She has not been on telemetry since her surgery. She denies any dizziness or shortness of breath when up and ambulating to the bathroom. She reports occasionally feeling palpitations. She reports mild pain but that she is taking pain medication. Family History: Unchanged from Admission Social History: Unchanged from Admission Past Medical History: Unchanged from Admission Objective Active Medications: Atorvastatin Calcium (Lipitor*) 10 mg PO 2100 [facility] Bisacodyl (Dulcolax Supp*) 10 mg [place] DAILY PRN Calcium Carbonate (Tums*) 1,000 mg PO QAM [facility] Calcium Polycarbophil (Fibercon Tab*) 625 mg PO QPM [facility] Diphenhydramine HCl (Benadryl Po*) 25 mg PO Q6H PRN Docusate Sodium (Colace Cap*) 100 mg PO BID [facility] Enoxaparin Sodium (Lovenox(*)) 30 mg SUBCUT Q24H [facility] Magnesium Hydroxide (Milk Of Magnesia Liq*) 30 ml PO BID [facility] Metoprolol Succinate (Toprol Xl Tab*) 25 mg PO BID [facility] Morphine Sulfate (Morphine Inj (Syringe)*) 2 mg IV Q2H PRN Multivitamins (Theragran Tab*) 1 tab PO DAILY [facility] Ondansetron HCl (Zofran Inj*) 4 mg IV Q6H PRN Oxycodone HCl (Roxycodone Tab*) 10 mg PO Q4H PRN Oxycodone/Acetaminophen (Percocet 5/325 Tab*) 1 tab PO Q4H PRN Oxycodone/Acetaminophen (Percocet 5/325 Tab*) 2 tab PO Q4H PRN Polyethylene Glycol/Electrolytes (Miralax*) 17 gm PO DAILY PRN Valsartan (Diovan Tab*) 320 mg PO QAM [facility] Vital Signs Temp Pulse Resp BP Pulse Ox 97.6 F 88 20 124/62 96 04/19/17 07:44 04/19/17 07:44 04/19/17 08:41 04/19/17 07:44 04/19/17 07:44 Oxygen Devices in Use Now: None Appearance: sitting up in bed, NAD Eyes: No Scleral Icterus, PERRLA Ears/Nose/Mouth/Throat: NL Teeth, Lips, Gums, Mucous Membranes Moist Neck: NL Appearance and Movements; NL JVP Respiratory: Symmetrical Chest Expansion and Respiratory Effort, Clear to Auscultation Cardiovascular: RRR, - - irregularly irregular Abdominal: NL Sounds; No Tenderness; No Distention Skin: - - L knee incision Neurological: Alert and Oriented x 3, NL Muscle Strength and Tone Lines/Tubes/Other Access: Clean, Dry and Intact Peripheral IV Nutrition: Taking PO's Result Diagrams: 04/19/17 05:43 04/17/17 05:34 Assess/Plan/Problems-Billing 89 yo F with h/o A. fib (recently dx, chronic), HTN, dyslipidemia s/p elective left knee replacement - Patient Problems (1) Status post left knee replacement Comment: Dispo per ortho. Pain control; PT/OT (2) Atrial fibrillation Comment: Placed back on tele to eval rate. Will restart eliquis. Continue BID Toprol. Per outpatient records she had a Holter monitor in January with average rate in the 80s and max rate 140s. Will hold off on increasing beta femi until rate observed. (3) Dyslipidemia Comment: cont lipitor (4) HTN (hypertension) Comment: controlled, cont Valsartan (5) Postoperative anemia due to acute blood loss Comment: Hb remains stable at 10.0 (6) DVT prophylaxis Comment: restart Eliquis (7) Full code status Status and Disposition: Will monitor rate on telemetry. Possible discharge later today.
[2017-04-19 10:42] LABS: BUN/Creatinine Ratio 28.1 (8-20); Calcium 8.2 mg/dL (8.6-10.3); EGFR African American 128.4 (>60); EGFR Non-African American 99.9 (>60); Magnesium 2.5 mg/dL (1.9-2.7); Potassium 4.4 mmol/L (3.5-5.0)
--- NOTE | 2017-04-19 11:18 | PN ---
Progress Note - Progress Note Date of Service: 04/19/17 SOAP: Subjective: 89 y/o female s/p L TKA by DR Nava. Patient feeling well overall, pain managed. no questions/ concerns. afebrile, irregular heart rate overnight, patient placed on tele. no c/o lightheadedness, dizziness. Objective: General- Well appearing, NAD ao MSK- L knee dressing changed, incision c/d/i, no drainage noted, sutures intact , new dressing placed, mild edema below knee, neg homans, PT 2+ + Df/PF. Vital Signs Temp 97.6 F 04/19/17 07:44 Pulse 88 04/19/17 07:44 Resp 20 04/19/17 08:41 BP 124/62 04/19/17 07:44 Pulse Ox 96 04/19/17 07:44 Intake & Output 04/18/17 04/19/17 04/19/17 18:59 06:59 18:59 Intake Total 710 620 Output Total 300 950 Balance 410 -330 Intake: Oral 710 620 Output: Urine 300 950 Other: Estimated Void Large Date of Last Bowel 04/19/17 Movement # Bowel Movements 0 1 Estimated Stool Amount Medium Medium # Voids 1 Assessment: Stable POD #3 89 y/o female s/p L TKA by DR Nava. Plan: - monitor heart rate on tele prior to DC - continue current pain management - D/C to [facility] today - Ceferino for DVT prophylaxis - continue PT Active Medications Generic Name Dose Route Start Last Admin Trade Name Freq PRN Reason Stop Dose Admin Apixaban 5 mg 04/19/17 11:00 Eliquis* PO BID TITO Atorvastatin Calcium 10 mg 04/16/17 21:00 04/18/17 21:36 Lipitor* PO 10 mg 2100 TITO Administration Bisacodyl 10 mg 04/16/17 09:18 Dulcolax Supp* SC DAILY PRN constipation Calcium Carbonate 1,000 mg 04/17/17 09:00 04/19/17 08:40 Tums* PO 1,000 mg QAM TITO Administration Calcium Polycarbophil 625 mg 04/16/17 18:00 04/18/17 17:32 Fibercon Tab* PO 625 mg QPM TITO Administration Diphenhydramine HCl 25 mg 04/16/17 09:18 Benadryl Po* PO Q6H PRN itching Docusate Sodium 100 mg 04/16/17 21:00 04/19/17 08:40 Colace Cap* PO Not Given BID [facility] Magnesium Hydroxide 30 ml 04/16/17 21:00 04/19/17 08:49 Milk Of Dorian Liq* PO Not Given BID [facility] Metoprolol Succinate 25 mg 04/16/17 21:00 04/19/17 08:41 Toprol Xl Tab* PO 25 mg BID TITO Administration Morphine Sulfate 2 mg 04/16/17 09:18 04/16/17 18:12 Morphine Inj (Syringe)* IV 2 mg Q2H PRN Administration PAIN Multivitamins 1 tab 04/17/17 09:00 04/19/17 08:40 Theragran Tab* PO 1 tab DAILY TITO Administration Ondansetron HCl 4 mg 04/16/17 09:18 Zofran Inj* IV Q6H PRN nausea Oxycodone HCl 10 mg 04/16/17 09:18 04/18/17 15:41 Roxycodone Tab* PO 10 mg Q4H PRN Administration PAIN - MODERATE TO SEVERE Oxycodone/Acetaminophen 1 tab 04/16/17 09:18 04/16/17 14:57 Percocet 5/325 Tab* PO 1 tab Q4H PRN Administration PAIN Oxycodone/Acetaminophen 2 tab 04/16/17 09:18 04/19/17 08:41 Percocet 5/325 Tab* PO 2 tab Q4H PRN Administration PAIN Polyethylene Glycol/Electrolytes 17 gm 04/16/17 09:18 Miralax* PO DAILY PRN Constipation Valsartan 320 mg 04/17/17 09:00 04/19/17 08:39 Diovan Tab* PO 320 mg QAM TITO Administration
[2017-04-19] MEDS: Apixaban* 5 MG TAB PO SCH ×2 (12:06→21:19)
[2017-04-19] MEDS ORDERED: Metoprolol Succinate XL TAB* 25 MG PO ONE (12:13)
--- NOTE | 2017-04-19 14:22 | PN ---
Hospitalist Progress Note Date of Service: 04/19/17 HOSPITALIST ADDENDUM: Subjective: Patient was seen for continued afib, pt currently denies any palpitations or shortness of breath. Objective: Pt was found sitting her bed, she has just finished eating her lunch. Her heart rate on the monitor with movement is between 103-149. During this evaluation the patient did receive an extra dose of metoprolol 12.5 mg po. Her heart rate does decrease to 103 at rest. Assessment/Plan: A-fib is likely elevated in the post operative setting do to pain, the rate seems to be very activity dependent. Will increase her metoprolol to 37.5 mg po BID, If her heart rate remains elevated we will consider given a dose of IV metoprolol. We will reevaluate her later to see the effects of the metoprolol.
[2017-04-19] MEDS: Calcium Polycarbophil TAB* 625 MG PO SCH (17:46)
[2017-04-19] MEDS: Metoprolol Tartrate IV* 1 MG/ML 5 ML VIAL IV PRN ×2 (17:46→17:51)
[2017-04-19] MEDS ORDERED: Metoprolol Succinate XL TAB* 25 MG PO SCH (21:00)
[2017-04-19] MEDS: Atorvastatin* 10 MG TAB PO SCH (21:19)
[2017-04-20 05:34] LABS: Hematocrit 31 % (35-47); Hemoglobin 10.2 g/dl (12.0-16.0); Mean Platelet Volume 8 um3 (7.4-10.4)
--- NOTE | 2017-04-20 08:30 | PN ---
Progress Note - Progress Note Date of Service: 04/20/17 SOAP: Subjective: She feels good, denies cp or palpitations. L knee with controlled pain. Objective: LLE - dressing and inc c/d/i. distally nvi. Vital Signs: Temp Pulse Resp BP Pulse Ox 97.7 F 131 20 143/71 100 04/20/17 03:52 04/20/17 03:52 04/20/17 03:52 04/20/17 03:52 04/20/17 03:52 Laboratory Results - last 24 hr 04/19/17 04/20/17 05:43 05:19 Hgb 10.2 L Hct 31 L Plt Count 212 MPV 8 Sodium 137 Potassium 4.4 Chloride 104 Carbon Dioxide 28 Anion Gap 5 BUN 16 Creatinine 0.57 Est GFR ( Amer) 128.4 Est GFR (Non-Af Amer) 99.9 BUN/Creatinine Ratio 28.1 H Glucose 103 H Calcium 8.2 L Magnesium 2.5 Assessment: 89 yo F pod 4 s/p LTKA Plan: afib history and tachycardia postop 4th floor for telemetry monitoring appreciate hospitalist care PT today for LTKA d/c to [facility] when stable
[2017-04-20] MEDS ORDERED: Valsartan TAB* 160 MG PO SCH ×2 (09:00)
[2017-04-20] MEDS ORDERED: Metoprolol Succinate XL TAB* 25 MG PO SCH (09:00)
[2017-04-20] MEDS ORDERED: Metoprolol Succinate XL TAB* 50 MG PO SCH (09:00)
--- NOTE | 2017-04-20 09:04 | PN ---
Subjective Date of Service: 04/20/17 Interval History: Patient seen and examined at bedside. Patient reports some pain this morning. HR resting around 100s. A few isolated bursts of HR up to 140s. Patient denies any dizziness or palpitations with mobilization. Family History: Unchanged from Admission Social History: Unchanged from Admission Past Medical History: Unchanged from Admission Objective Active Medications: Apixaban (Eliquis*) 5 mg PO BID TITO Atorvastatin Calcium (Lipitor*) 10 mg PO 2100 TITO Bisacodyl (Dulcolax Supp*) 10 mg AL DAILY PRN Calcium Carbonate (Tums*) 1,000 mg PO QAM [facility] Calcium Polycarbophil (Fibercon Tab*) 625 mg PO QPM TITO Diphenhydramine HCl (Benadryl Po*) 25 mg PO Q6H PRN Docusate Sodium (Colace Cap*) 100 mg PO BID TITO Magnesium Hydroxide (Milk Of Magnesia Liq*) 30 ml PO BID [facility] Metoprolol Succinate (Toprol Xl Tab*) 37.5 mg PO BID [facility] Morphine Sulfate (Morphine Inj (Syringe)*) 2 mg IV Q2H PRN Multivitamins (Theragran Tab*) 1 tab PO DAILY [facility] Ondansetron HCl (Zofran Inj*) 4 mg IV Q6H PRN Oxycodone HCl (Roxycodone Tab*) 10 mg PO Q4H PRN Oxycodone/Acetaminophen (Percocet 5/325 Tab*) 1 tab PO Q4H PRN Oxycodone/Acetaminophen (Percocet 5/325 Tab*) 2 tab PO Q4H PRN Polyethylene Glycol/Electrolytes (Miralax*) 17 gm PO DAILY PRN Valsartan (Diovan Tab*) 320 mg PO QAM [facility] Vital Signs Temp Pulse Resp BP Pulse Ox 97.7 F 131 20 143/71 100 04/20/17 03:52 04/20/17 03:52 04/20/17 03:52 04/20/17 03:52 04/20/17 03:52 Oxygen Devices in Use Now: None Appearance: sitting up in bed, NAD Eyes: No Scleral Icterus, PERRLA Ears/Nose/Mouth/Throat: NL Teeth, Lips, Gums Neck: NL Appearance and Movements; NL JVP Respiratory: Symmetrical Chest Expansion and Respiratory Effort, Clear to Auscultation Cardiovascular: NL Sounds; No Murmurs; No JVD, No Edema, - - irregularly irregular Abdominal: NL Sounds; No Tenderness; No Distention Extremities: No Edema Skin: No Rash or Ulcers, - - knee incision C/D/I Neurological: Alert and Oriented x 3, NL Muscle Strength and Tone Lines/Tubes/Other Access: Clean, Dry and Intact Peripheral IV Nutrition: Taking PO's Result Diagrams: 04/20/17 05:19 04/19/17 05:43 Assess/Plan/Problems-Billing 89 yo F with h/o A. fib (recently dx, chronic), HTN, dyslipidemia s/p elective left knee replacement - Patient Problems (1) Status post left knee replacement Comment: Dispo per ortho. Pain control; PT/OT (2) Atrial fibrillation Comment: Upon review of preop EKG rate was 99. Likely resting HR is a little higher than 80s. Continue increased Toprol at 37.5. Asymptomatic with activity and HR to 140s. Continue Eliquis. (3) Dyslipidemia Comment: cont lipitor (4) HTN (hypertension) Comment: controlled, cont Valsartan (5) Postoperative anemia due to acute blood loss Comment: Hb remains stable at 10.0 (6) DVT prophylaxis Comment: restart Eliquis (7) Full code status Status and Disposition: Dispo per Ortho. Stable from afib standpoint for discharge. Will need f/u with Dr Kruger (cardiology) in 1-2 weeks.
[2017-04-20] MEDS: Vitamin THERAPEUTIC TAB PO SCH (09:06)
[2017-04-20] MEDS: oxyCODONE/Acetamin 5/325 MG* TAB PO PRN (09:07)
[2017-04-20] MEDS: Apixaban* 5 MG TAB PO SCH (09:08)
[2017-04-20] MEDS: Docusate CAP* 100 MG PO SCH (09:08)
[2017-04-20] MEDS: Calcium Carbonate CHEW TAB* 500 MG (TUMS) PO SCH (09:09)
[2017-04-20] MEDS: Magnesium Hydroxide LIQ* 30 ML UDC PO SCH (09:09)
[2017-04-20 12:02] VITALS: BP 134/73
--- NOTE | 2017-04-20 15:21 | DS ---
DISCHARGE SUMMARY: DATE OF ADMISSION: 04/16/17 DATE OF DISCHARGE: 04/20/17 ATTENDING PHYSICIAN: Darshana Nava MD PRINCIPAL DIAGNOSIS: Left knee end-stage osteoarthritis. SECONDARY DIAGNOSES: 1. Atrial fibrillation. 2. Hypertension. 3. Breast cancer. 4. Hyperlipidemia. 5. Zenker's diverticulum. PRINCIPAL PROCEDURE: Left total knee arthroplasty. REASON FOR HOSPITALIZATION: Ms. Bates is an 89-year-old female who has had end- stage osteoarthritis of the left knee. She has failed conservative management and elected to proceed with left total kne e arthroplasty, which was done on 04/16/[address] Nava. HOSPITAL COURSE: The patient was admitted to the hospital on 04/16/17 for anticipated left total kne e arthroplasty. She underwent surgery without any complications. She was transferred to the recover y room and subsequently the medical/surgical floor in a stable condition. The patient's vital signs have remained stable throughout the hospital course with the exception of increased irregular heartbe at due to atrial fibrillation. Hospitalist was consulted to evaluate, she has remained afebrile. Th e patient has participated in physical therapy and occupational therapy throughout the hospital cours e, has done well. Hemoglobin and hematocrit were checked throughout the hospital course and has remai beatris stable. The hemoglobin was 10.2 and hematocrit 31 on the day of discharge. The patient has been on Eliquis for DVT prophylaxis. Pain management has been continued with oxycodone. The patient's d ischarge was delayed by 1 day due to the atrial fibrillation. On the day of discharge, was deemed st able by the hospitalist and will increase Toprol at 37.5. The patient was discharged on 04/20/17 in a stable condition to short-term rehab at [facility]. DISCHARGE MEDICATIONS: 1. Eliquis 5 mg p.o. b.i.d. 2. Multivitamin p.o. q. a.m. 3. Atorvastatin 10 mg daily. 4. Calcium carbonate 500 mg daily. 5. Metoprolol 37.5 mg. 6. Valsartan 160 mg daily. 7. Oxycodone 10 mg p.o. q.4 hours. 8. Colace 100 mg p.o. b.i.d. DISCHARGE INSTRUCTIONS: Weightbearing as tolerated. Wound care, okay to shower. No bathing, swimmin g and submerging wound. Use gentle soap, pat dry, cover with gauze, Claudio wrap or tape. Call orthoped ic office with increased drainage, redness, increased pain or fever. Go to ER for shortness of breat h or chest pain. Diet; regular diet. Increase fluids and fiber to prevent constipation. Continue t o use stool softeners. Call office if no bowel movement within 48 hours. Continue physical therapy and occupational therapy exercises as shown. Visiting home nurse, rehab facility nurse to do wound c hecks. Resume normal Eliquis dose for DVT prophylaxis. Pain control with Percocet. Please note kari t Percocet contains Tylenol. Maximum daily dose of Tylenol is 4000 mg from any source. Antibiotics required prior to any dental work. Follow up with Dr. Nava within 10 to 14 days. Call the orthopedi c office for an appointment. RASHIDA WALTON [id number]/CPS #: [id number]
== END 2017-04-20 13:10 | DRG 470 ==
LOC: AA 06:12 → SSU 11:15 → MEDTELE 04-19 17:30
PROVIDERS: ADMIT Orthopaedic Surgery Adult Reconstructive Orthopaedic Surgery; ATTEND Internal Medicine
PROC: 0SRD0J9 Replacement of Left Knee Joint with Synthetic Substitute, Cemented, Open Approach (ICD-10-PCS; principal; 2017-04-16 07:30)
DX: M17.12 Unilateral primary osteoarthritis, left knee (principal); I48.91 Unspecified atrial fibrillation; D62 Acute posthemorrhagic anemia; I27.20 Pulmonary hypertension, unspecified; I10 Essential (primary) hypertension; E78.5 Hyperlipidemia, unspecified; Z85.3 Personal history of malignant neoplasm of breast; M85.862 Other specified disorders of bone density and structure, left lower leg; K22.5 Diverticulum of esophagus, acquired; Z79.01 Long term (current) use of anticoagulants; Z90.13 Acquired absence of bilateral breasts and nipples; Z88.5 Allergy status to narcotic agent; Z82.49 Family history of ischemic heart disease and other diseases of the circulatory system; Z80.9 Family history of malignant neoplasm, unspecified; R00.0 Tachycardia, unspecified; Z88.8 Allergy status to other drugs, medicaments and biological substances; Z98.42 Cataract extraction status, left eye; Z98.41 Cataract extraction status, right eye
CPT/HCPCS: 36415; 80048; 83735; 85014; 85018; 85049; 93005; A9270-GY; C1776; J0690; J1100; J1650; J2250; J2270; J2704; J3010; J3490